=== PATIENT | male | born 1980 | race African-American/Black ===

== ENCOUNTER 2016-03-02 20:34 | Emergency (ER) | payer OTHER ==
[~2016-03-02] VITALS: Ht 175.3 cm; Wt 136.4 kg
[~2016-03-02 20:34] MED LIST: CELEXA40 MG PO; FLEXERIL10 MG PO; HUMALOG100 UNIT/1 SC; NAPROSYN500 MG PO; NOVOLOG 10100 UNITS/; SIMVASTATIN20 MG PO; TRAMADOL HCL50 MG PO; VENTOLIN HFA18 GM IH; WELLBUTRIN100 MG PO; ZOFRAN4 MG PO
[2016-03-02 23:01] LABS: HEMATOCRIT 41.3 % (38.0-50.0); MCH 29.4 PG (29.0-34.0); MCHC 33.2 G/DL (30.0-36.0); MCV 88.6 FL (86-99); MEAN PLAT.VOLUME 9.8 uM^3 (9.0-12.4); PLATELET COUNT 357 K/uL (156-360); RBC DIS.WIDTH-CV 14.6 % (11.8-14.6); RBC DIS.WIDTH-SD 46.5 % (39-53); RED BLOOD COUNT 4.66 M/uL (4.00-5.50); WHITE BLOOD COUNT 9.2 K/uL (4.1-10.2)
[2016-03-02 23:08] LABS: CHLORIDE 100 mEq/L (99-109); POTASSIUM 5.3 mEq/L (3.7-5.4); SODIUM 135 mEq/L (136-147)
[2016-03-02 23:10] LABS: GLUCOSE 153 mg/dL (70-99)
[2016-03-02 23:11] LABS: ANION GAP 12 MEQ/L (2-14)
[2016-03-02 23:12] LABS: TOTAL BILIRUBIN 0.2 mg/dL (0.0-1.0)
[2016-03-02 23:13] LABS: ALKALINE PHOSPHATASE 95 IU/L (3-129)
[2016-03-02 23:14] LABS: GFR ESTIMATE (CALCULATED) > 59 mL/min/
[2016-03-02 23:15] LABS: UREA NITROGEN (BUN) 12 mg/dL (9-23)
[2016-03-02 23:31] LABS: INTERNAL CONTROL VALID? YES; MONOSPOT (MONONUCLEOSIS SEROL) NEGATIVE
[2016-03-03] MEDS ORDERED: PERCOCET 5/31 TABLET PO (01:24)
[2016-03-03 01:38] VITALS: BP 133/81
== END 2016-03-03 01:40 | disposition home or self-care (01) ==
LOC: EXP 20:34 → EME 20:34 → EXP 03-03 01:40
PROVIDERS: Physician Assistant Medical
DX: J02.9 Acute pharyngitis, unspecified (principal); E11.9 Type 2 diabetes mellitus without complications
CPT/HCPCS: 70491; 80053; 85027; 86308; 87651 90; 99281; 99284; J1100; J7030

== ENCOUNTER 2016-03-26 10:54 | Day surgery (SDC) | payer OTHER ==
[~2016-03-26] VITALS: Ht 177.8 cm; Wt 133.8 kg
[~2016-03-26 10:54] MED LIST changes: +INSULIN PUMP SCCONT; +MINIMED 530G1 EACH MC; +PERCOCET 5/31 TABLET PO; +ZOLOFT100 MG PO; +ZOLOFT50 MG PO
[2016-03-26 11:29] VITALS: BP 123/78
[2016-03-26 11:37] LABS: POINT-OF-CARE METER ID UU14174212
[2016-03-26 15:16] LABS: POINT-OF-CARE METER ID UU13113675
[2016-03-26 18:06] VITALS: BP 146/83
[2016-03-26 19:10] VITALS: BP 129/71
[2016-03-26 23:55] VITALS: BP 143/78
[2016-03-27 04:00] VITALS: BP 136/74
[2016-03-27 07:00] VITALS: BP 124/65
== END 2016-03-27 10:40 | disposition home or self-care (01) ==
LOC: SDC 10:54 → 2SOUTH 11:01 → EDSTATUS 11:02 → SDC 11:02 → 2SOUTH 14:21 → 2EAST 18:05
PROVIDERS: Otolaryngology
PROC: 0CTPXZZ Resection of Tonsils, External Approach (ICD-10-PCS; principal; 2016-03-26)
DX: J35.01 Chronic tonsillitis (principal); E10.9 Type 1 diabetes mellitus without complications; Z96.41 Presence of insulin pump (external) (internal); Z79.4 Long term (current) use of insulin
CPT/HCPCS: 82948; 88304; G0378; J0330; J1100; J1170; J1815; J2250; J2405; J3010; J7120